=== PATIENT | female | born 1975 | race Caucasian/White ===

== ENCOUNTER → 2022-07-07 15:06 | Outpatient (CLI) | payer OTHER, SELFPAY ==
--- NOTE | 2022-07-07 | DI.MRI.S_ITS ---
BREAST MRI OF BOTH BREASTS: 07/07/2022 CLINICAL: Follow up from mammogram. Solitary cyst of unspecified breast. PROCEDURE: MR BREAST BI WO/W CON INDICATIONS: Solitary cyst of unspecified breast Additional history: Right breast upper-outer quadrant focal asymmetry without ultrasound correlate. TECHNIQUE: The patient was placed prone in a dedicated breast imaging coil. Precontrast axial STIR and 3D FLASH without fat saturation sequences were obtained. Both before and after bolus injection of contrast, sequential 1-minute axial 3D FLASH with fat saturation sequences for 3 time points, with subtraction images and maximum intensity projections (MIP's) generated. Delayed sagittal FLASH images with fat saturation were also obtained. CONTRAST: 20 cc ProHance IV contrast. Computer-aided detection, including computer algorithm analysis of MRI image data for lesion detection and characterization, pharmacokinetic analysis, with further physician review for interpretation, was performed. COMPARISON: [facility], , MM SPECIAL VIEW RT, 06/11/2022, 8:45. [facility], , US RIGHT BREAST, 06/11/2022, 8:28. [facility], , MM SCREENING MAMMO BI, 05/19/2022, 14:47. [facility], , MM SCREENING MAMMO BI, 01/03/2020, 10:12. FINDINGS: Image quality: Excellent. There is moderate background parenchymal enhancement. Right breast: No mass or suspicious enhancement. Small T2 hyperintense cyst in the lateral right breast. A few minimally prominent ducts. Left breast: No mass or suspicious enhancement. A few small T2 hyperintense cysts. A few minimally prominent ducts. Miscellaneous: No enlarged lymph nodes. IMPRESSION: BENIGN No mass or suspicious enhancement. A few small T2 hyperintense cysts. A few minimally prominent ducts. BIRADS 2. Recommend screening mammogram in 12 months. COMMENT: The imaging literature indicates that a negative contrast breast MRI examination has a high sensitivity and a moderate specificity for detecting and excluding invasive carcinomas to a detection threshold of 3-5 mm; nonetheless, appropriate clinical and mammographic follow-up are recommended. MRI is not sensitive for detecting DCIS (ductal carcinoma in situ) and may not detect large invasive neoplasms that show only minimal enhancement such as mucinous carcinoma. If there are suspicious calcifications or clinically worrisome palpable masses, then biopsy should still be considered. Invasive neoplasms can be hidden by co-existent and benign enhancement caused by mastitis, hormone therapy effects, radiation therapy, , and recent biopsy or surgery. False positive examinations can occur in a number of circumstances, including breasts that have recently been subject to invasive procedures and those that contain atypical ductal hyperplasia, hormonally stimulated glandular tissue, fat necrosis, or radial scars. Dictated by: Daron Guerra M.D. on 07/08/2022 at 11:47 This exam was interpreted at Station ID: [id number]. Electronically Signed By: Daron Guerra M.D. slc/:07/08/2022 12:16:54 letter sent: Normal Exam ACR BI-RADS Category 2: Benign Finding(s) [id number]
== END ==
PROVIDERS: Referring Provider Nurse Practitioner; Visit Provider Nurse Practitioner
DX: R92.8 Other abnormal and inconclusive findings on diagnostic imaging of breast (principal); N60.01 Solitary cyst of right breast; N60.02 Solitary cyst of left breast
CPT/HCPCS: 77049; A9579